=== PATIENT | female | born 1995 | race Caucasian/White ===

== ENCOUNTER 2021-09-11 15:19 | Inpatient (IN) | payer OTHER ==
[~2021-09-11] VITALS: Ht 160 cm; Wt 92.5 kg
[2021-09-11 16:10] LABS: BILIRUBIN NEGATIVE (NEGATIVE); BLOOD NEGATIVE Ery/uL (NEGATIVE); CLARITY CLEAR (CLEAR); COLOR YELLOW (YELLOW); GLUCOSE (U) NORMAL (NORMAL); LEUKOCYTES TRACE Leu/uL (NEGATIVE); NITRITE NEGATIVE (NEGATIVE); PROTEIN NEGATIVE (NEGATIVE); SPECIFIC GRAVITY 1.015 (1.001-1.030); UROBILINOGEN 0.2 mg/dL (0.2-1.0)
[2021-09-11 16:28] LABS: BACTERIA 1+; URINARY RBC RARE
[2021-09-11 16:55] LABS: HCT 41.2 % (37.0-47.0); HGB 13.9 g/dl (12.5-16.0); MCH 29.2 pg (25.0-31.0); MCHC 33.7 g/dL (32.0-36.0); MCV 86.6 fL (78.0-100.0); MPV 10.7 fL (6.0-9.5); RBC 4.76 M/uL (4.20-5.40); RDW 14.2 % (11.5-14.0); WBC 13.4 K/uL (4.0-10.5)
[2021-09-13 07:04] LABS: HCT 33.2 % (37.0-47.0); MCH 29.3 pg (25.0-31.0); MCHC 33.1 g/dL (32.0-36.0); MCV 88.5 fL (78.0-100.0); MPV 10.7 fL (6.0-9.5); RBC 3.75 M/uL (4.20-5.40); RDW 14.3 % (11.5-14.0); WBC 14.3 K/uL (4.0-10.5)
== END 2021-09-14 19:52 | disposition home or self-care (01) | DRG 788 ==
LOC: FOB 15:19
PROVIDERS: Obstetrics & Gynecology; ADMIT Obstetrics & Gynecology
PROC: 3E0P7VZ Introduction of Hormone into Female Reproductive, Via Natural or Artificial Opening (ICD-10-PCS; 2021-09-11)
PROC: 10D00Z1 Extraction of Products of Conception, Low, Open Approach (ICD-10-PCS; principal; 2021-09-12 22:00)
DX: O76 Abnormality in fetal heart rate and rhythm complicating labor and delivery (principal); O36.63X0 Maternal care for excessive fetal growth, third trimester, not applicable or unspecified; O99.214 Obesity complicating childbirth; Z37.0 Single live birth; Z3A.39 39 weeks gestation of pregnancy; Z86.16 Personal history of COVID-19
CPT/HCPCS: 36415; 81001; 86850; 86900; 86901; J0456; J0690; J1885; J2001; J2300; J2370; J2405; J7050; J7120